=== PATIENT | female | born 1975 | race Caucasian/White ===

== ENCOUNTER 2023-03-09 15:07 | Outpatient (CLI) | payer OTHER, SELFPAY | END 2023-03-09 15:08 | disposition home or self-care (01) | LOC: NFLDREF 03-10 14:25 | PROVIDERS: Visit Provider Dermatology | DX: Z79.899 Other long term (current) drug therapy (principal) | CPT/HCPCS: 80053 ==

== ENCOUNTER 2023-06-16 10:26 | Emergency (ER) | payer OTHER, SELFPAY ==
[2023-06-16] VITALS (19 sets, daily range): BP systolic 123–141; BP diastolic 81–102; PULSE 70–88; RESP 20; TEMP 36.2; O2SAT 94–98; BMI 33.0
--- NOTE | 2023-06-16 11:08 | CRLHL7_ITS ---
For Patients: As a result of the Century Cures Act, medical imaging exams and procedure reports are released immediately into your electronic medical record. You may view this report before your referring provider. If you have questions, please contact your health care provider. DATE: 06/16/2023 CLINICAL HISTORY: Patient with focal neurological deficits. TECHNIQUE: Standard helical CT image acquisition through the intracranial circulation following intravenous administration of contrast material with bolus tracking. 2D and 3D MIP images for post-processing were performed and interpreted on an independent workstation and 3D images were permanently archived. COMPARISON: CT same day. FINDINGS: There is no cerebral aneurysm or large vessel occlusion. The right internal carotid artery is normal. The right middle cerebral artery and its branches are normal. The right anterior cerebral artery and its branches are normal. The left internal carotid artery is normal. The left middle cerebral artery and its branches are normal. The left anterior cerebral artery and its branches are normal. The anterior communicating artery is well visualized and appears normal. The right vertebral artery and PICA are normal. The left vertebral artery and PICA are normal. The left vertebral artery is dominant. The basilar artery is patent and appears normal. The right posterior cerebral artery is normal. The left posterior cerebral artery is normal. The visualized venous structures are patent. IMPRESSION: Normal CT angiogram of the head without intracranial aneurysm or other neurovascular abnormality. Please note that all CT scans at this facility use dose modulation, iterative reconstruction, and/or weight-based dosing when appropriate to reduce radiation dose to as low as reasonably achievable. Dictated by Corie Solano MD @ 06/16/2023 4:11:23 PM (Electronically Signed)
--- NOTE | 2023-06-16 11:08 | CRLHL7_ITS ---
For Patients: As a result of the Century Cures Act, medical imaging exams and procedure reports are released immediately into your electronic medical record. You may view this report before your referring provider. If you have questions, please contact your health care provider. DATE: 06/16/2023 CLINICAL HISTORY: Patient with focal neurological deficits. TECHNIQUE: Standard helical CT image acquisition of the neck up to the skull base after bolus intravenous contrast enhancement. 2D and 3D MIP images for post-processing were performed and interpreted on an independent workstation and 3D images were permanently archived. COMPARISON: CT same day. FINDINGS: The origins of the great vessels from the aortic arch are patent. The origin of the right vertebral artery is patent. The origin of the left vertebral artery is patent. The common carotid arteries are patent. There is no stenosis at the origin of the right internal carotid artery. There is no stenosis at the origin of the left internal carotid artery. The rest of the cervical segments of the internal carotid arteries are patent up to the skull base. The left vertebral artery is dominant. The cervical segments of the vertebral arteries are patent up to the skull base. The visualized lung apices are unremarkable. The thyroid gland is unremarkable. The soft tissues of the neck are unremarkable. There are degenerative changes in the cervical spine. IMPRESSION: Normal CT angiogram of the neck. Please note that all CT scans at this facility use dose modulation, iterative reconstruction, and/or weight-based dosing when appropriate to reduce radiation dose to as low as reasonably achievable. Dictated by Corie Solano MD @ 06/16/2023 3:59:05 PM (Electronically Signed)
--- NOTE | 2023-06-16 11:08 | CRLHL7_ITS ---
For Patients: As a result of the Century Cures Act, medical imaging exams and procedure reports are released immediately into your electronic medical record. You may view this report before your referring provider. If you have questions, please contact your health care provider. INDICATION: tingling, numbness, visual loss, SINCE LAST NIGHT TECHNIQUE: CT head without contrast. COMPARISON: None. FINDINGS: CSF spaces: Within normal limits for age. Brain parenchyma and extra-axial spaces: The bruce-white differentiation is normal. No sign of intracranial hemorrhage, or midline shift. No extra-axial fluid collection. Skull base and calvarium: The visualized paranasal sinuses and mastoid air cells demonstrate no acute or significant findings. The visualized orbits are grossly unremarkable. No skull fractures. IMPRESSION: Unremarkable noncontrast head CT. Recommend further evaluation with MRI, if clinically indicated. Please note that all CT scans at this facility use dose modulation, iterative reconstruction, and/or weight-based dosing when appropriate to reduce radiation dose to as low as reasonably achievable. Dictated by Shankar Rodriguez MD @ 06/16/2023 12:05:59 PM (Electronically Signed)
[2023-06-16 11:33] LABS: Basophils Absolute Auto 0.02 K/uL (0.00-0.30); Basophils Percent Auto 0.3 % (0.0-3.0); Eosinophils Absolute Auto 0.09 K/uL (0.00-0.50); Eosinophils Percent Auto 1.3 % (0.0-7.0); Hematocrit 44.4 % (33.0-51.0); Hemoglobin* 14.6 gm/dL (12.0-16.0); Immature Granulocytes Abs Auto 0.01 K/uL (0.00-0.30); Immature Granulocytes Pct Auto 0.1 %; Lymphocytes Absolute Auto 1.86 K/uL (0.90-2.90); Lymphocytes Percent Auto 26.5 % (20-44); Mean Corpuscular HGB Conc 33 gm/dL (32-36); Mean Corpuscular Hemoglobin 30 pg (26-34); Mean Corpuscular Volume 90 fL (80-100); Monocytes Percent Auto 6.7 % (0.0-11.0); Neutrophils Absolute Auto 4.56 K/uL (1.7-7.0); Neutrophils Percent Auto 65.1 % (42.0-72.0); Platelet Count* 369 K/uL (140-440); RDW Coefficient of Variation % 13.1 % (11.5-15.5); Red Blood Count 4.91 m/uL (4.00-5.20); White Blood Count* 7.01 K/uL (4.50-11.00)
[2023-06-16 11:44] LABS: Slide Review Reflex No
[2023-06-16 11:46] LABS: Amphetamine Screen Urine Negative (Negative); Barbiturate Screen Urine Negative (Negative); Benzodiazepines Screen Urine Negative (Negative); Cannabinoid Screen Urine POSITIVE (Negative); Cocaine Screen Urine Negative (Negative); Methadone Screen Urine Negative (Negative); Methamphetamines Screen Urine Negative (Negative); Opiate Screen Urine Negative (Negative); Oxycodone Screen Urine Negative (Negative); Phencyclidine Screen Urine Negative (Negative); Tricyclic Antidepressant Urine Negative (Negative)
[2023-06-16] MEDS: 0.9 % SODIUM CHLORIDE 1000 ml 1,000 ML IV (11:51)
--- NOTE | 2023-06-16 11:54 | ED.NURSE ---
patient is improving stated the tingling in the toes is gone but continues with the hands. stated the hand just do not feel right.
[2023-06-16 11:56] LABS: INR 0.95 (0.91-1.10); Prothrombin Time 13.2 Seconds
[2023-06-16 11:57] LABS: Albumin* 4.7 g/dL (3.3-5.0); Chloride* 106 mmol/L (96-114); Partial Thromboplastin Time* 31 Seconds (23-33); Potassium* 4.2 mmol/L (3.6-5.1); Sodium* 139 mmol/L (135-149)
[2023-06-16 11:59] LABS: Anion Gap 8 mEq/L (7-15); Bilirubin Total* 0.7 mg/dL (0.1-1.5); Carbon Dioxide* 25 mmol/L (20-32); Creatinine* 0.7 mg/dL (0.5-1.5); Est. Creatinine Clearance* 108.59; Estimated Glomerular Filt Rate 108 ml/min; Total Protein* 8.1 g/dL (6.0-8.3)
[2023-06-16 12:00] LABS: Alanine Aminotransferase* 23 U/L (4-35); Alkaline Phosphatase* 78 U/L (40-150); Aspartate Amino Transferase* 27 U/L (12-35); Blood Urea Nitrogen* 13 mg/dL (5-24); Calcium* 9.4 mg/dL (8.4-10.6); Glucose* 95 mg/dL (60-115)
[2023-06-16 12:09] LABS: PCR FLU A Negative PCR FLU A (Negative); PCR FLU B Negative PCR FLU B (Negative); PCR RSV Negative PCR RSV (Negative)
[2023-06-16 12:14] LABS: SARS PCR* Negative SARS-CoV-2 (Negative)
--- NOTE | 2023-06-16 13:18 | ED_ITS ---
HPI - Neuro Symptoms/Deficit General Chief Complaint: Neuro Symptoms/Altered Deficit Stated Complaint: Tingling in limbs Time Seen by Provider: 06/16/23 10:45 History of Present Illness HPI Narrative: Patient is a very nice 47-year-old female presents with her significant other ambulatory for evaluation of numbness and tingling she has an all of her extremities, she localizes this to her hands and her feet bilaterally. The tingling sensation then loss of sensation, she has noted no weakness associated with this, this come on the last 3-4 hours. Not associated with any headache, loss of vision although yesterday she had acute loss of right-sided visual field. This lasted for approximately 30-40 minutes, she tells me she has had this before, her doctors told her in the past this may be a TIA or may be an atypical migraine headache, the only real change she has noted recently is she started on doxycycline for assist infection over the back of her neck after she had this removed by the clinical radiologist. She is also on Casodex, on been on this for approximately 3 months. Indication for this was acne. Denies any other visual changes, speech issues, thinking, balance issues, any weakness in her hands or feet. She has denies no fevers chills or sweats, or any other issue she is not on any medications for TIAs. No previous history of any this and no history in the family of any heart or previous strokes at a young age. No family history of migraine headaches. Related Data Home Medications Medication Instructions Recorded Confirmed venlafaxine 75 mg capsule,extended 75 mg PO DAILY 06/16/23 06/16/23 release 24 hr Previous Rx's Medication Instructions Recorded ketoconazole 2 % topical cream 1 applic topical QDAY #60 grams 12/29/22 bicalutamide 50 mg tablet (Casodex) 50 mg PO QDAY #24 tabs 06/01/23 doxycycline hyclate 100 mg capsule 100 mg PO BID #28 caps 06/14/23 cephalexin 500 mg capsule 500 mg PO TID #20 caps 06/16/23 Allergies Allergy/AdvReac Type Severity Reaction Status Date / Time No Known Drug Allergies Allergy Verified 06/16/23 10:38 Review of Systems Status of ROS: Reports: 10 or more systems reviewed and unremarkable except as noted in History and below [facility] Medical History Infection ?B99.9 - Unspecified infectious disease (ICD-10) Acne ?L70.9 - Acne, unspecified (ICD-10) Social History Smoking Status: Never smoker How often do you have a drink containing alcohol: never AUDIT-C Alcohol total score: 0 Non-prescribed substance use: denies use Exam Narrative: Exam Narrative: On examination in room 6 she is in no apparent distress her pupils are equal round reactive to light there is no scleral icterus or redness there is no nystagmus, her TMs are normal oropharynx is normal cranial nerves 3-12 are entirely normal. Her visual mckenzie are normal on testing, her speech is normal. She is not able to whistle but tells me she can never whistle anyway. Carotid upstrokes are equal bilaterally with absence of bruits, JVP is flat, there is no lymphadenopathy anterior posterior chains. Chest is clear bilaterally no wheezing crackles noted over the upper part of her back approximately just lateral to see 7, T1, there is an area of redness, within exuding area of slight pus and debris consistent with the previous removal. Heart sounds no clicks murmurs or gallops her abdomen is soft, there is no guarding no organomegaly she moves all extremities independently well has good coordination, no ataxia, heel- breen tile is normal, Romberg is normal, gait is normal, stroke /NIH Screen is 0. Const: Vital Signs, click to edit/add: Vital Signs - 24 hr 06/16/23 10:32 06/16/23 11:08 06/16/23 11:58 Temperature 97.2 F L Pulse Rate 70 Pulse Rate [Right Pulse Oximeter] 88 Respiratory Rate 20 Blood Pressure Blood Pressure [Ri ght Upper Arm] 135/89 Pulse Oximetry 96 97 98 Oxygen Delivery Me thod Room Air 06/16/23 12:00 06/16/23 12:02 06/16/23 12:15 Temperature Pulse Rate 71 75 71 Pulse Rate [Right Pulse Oximeter] Respiratory Rate Blood Pressure 132/85 Blood Pressure [Ri ght Upper Arm] Pulse Oximetry 96 98 97 Oxygen Delivery Me thod 06/16/23 12:17 06/16/23 12:30 06/16/23 12:32 Temperature Pulse Rate 76 78 73 Pulse Rate [Right Pulse Oximeter] Respiratory Rate Blood Pressure 141/93 H 138/102 H Blood Pressure [Ri ght Upper Arm] Pulse Oximetry 98 97 98 Oxygen Delivery Me thod 06/16/23 12:45 06/16/23 12:47 06/16/23 13:00 Temperature Pulse Rate 77 72 74 Pulse Rate [Right Pulse Oximeter] Respiratory Rate Blood Pressure 131/82 Blood Pressure [Ri ght Upper Arm] Pulse Oximetry 96 97 97 Oxygen Delivery Me thod 06/16/23 13:02 06/16/23 13:15 06/16/23 13:17 Temperature Pulse Rate 78 76 77 Pulse Rate [Right Pulse Oximeter] Respiratory Rate Blood Pressure 123/81 125/100 H Blood Pressure [Ri ght Upper Arm] Pulse Oximetry 96 97 96 Oxygen Delivery Me thod 06/16/23 13:30 06/16/23 13:32 06/16/23 13:45 Temperature Pulse Rate 72 72 70 Pulse Rate [Right Pulse Oximeter] Respiratory Rate Blood Pressure 130/89 Blood Pressure [Ri ght Upper Arm] Pulse Oximetry 94 95 95 Oxygen Delivery Me thod 06/16/23 13:47 Temperature Pulse Rate 73 Pulse Rate [Right Pulse Oximeter] Respiratory Rate Blood Pressure 129/97 H Blood Pressure [Ri ght Upper Arm] Pulse Oximetry 96 Oxygen Delivery Me thod Documenting provider has reviewed patient's vital signs: yes Course Course ED Course: Discussed with the patient, they MRI of the brain did not show any acute issues. I suspect that it least the paresthesias he is having is from possibly medication, we will stop the doxycycline, and have her take aspirin 81 mg I highly suggest her follow-up with the neurologist. Return here if signs symptoms of worsening. Reevaluation(s) Time of Reevaluation #1: 14:08 Reevaluation #1: Patient continues to be so pain-free, and relatively negative on the stroke screen, her numbness and tingling has markedly improved. I did offer her an MRI of her head, to further delineate this history of previous TIAs. She agreed. Vital Signs Vital signs: Initial Vital Signs Temperature 97.2 F L 06/16/23 10:32 Temperature Source Temporal Artery Scan 06/16/23 10:32 Pulse Rate 88 06/16/23 10:32 Respiratory Rate 20 06/16/23 10:32 Blood Pressure 135/89 06/16/23 10:32 Blood Pressure Mean 104 06/16/23 10:32 Blood Pressure Position Sitting 06/16/23 10:32 Pulse Oximetry 96 06/16/23 10:32 Oxygen Delivery Method Room Air 06/16/23 10:32 Vital Signs Temperature 97.2 F L 06/16/23 10:32 Pulse Rate 88 06/16/23 10:32 Respiratory Rate 20 06/16/23 10:32 Blood Pressure 135/89 06/16/23 10:32 Pulse Oximetry 96 06/16/23 10:32 Oxygen Delivery Method Room Air 06/16/23 10:32 Temperature 97.2 F L 06/16/23 10:32 Pulse Rate 73 06/16/23 13:47 Respiratory Rate 20 06/16/23 10:32 Blood Pressure 129/97 H 06/16/23 13:47 Pulse Oximetry 96 06/16/23 13:47 Oxygen Delivery Method Room Air 06/16/23 10:32 MDM - Neuro Symptoms/Deficit MDM Narrative Medical decision making narrative: Life-threatening differential diagnosis considered include stroke, coronary artery disease, pneumonia, and heart failure. Other differential diagnosis include but are not limited to electrolyte imbalances, anemia, medication reactions, and urinary tract infection Life-threatening differential diagnosis include subarachnoid hemorrhage, meningitis, encephalitis, carbon monoxide poisoning, and intracerebral hemorrhage. Other differential diagnosis include but not limited to migraine, cluster headache, tension headache, HOSPICE [facility] THERAP[facility] vasculitis, mass lesion, temporal arteritis, click acute closed angle glaucoma, septal and trigeminal neuralgia, sinusitis, closed head injury, and stroke Medical Records Attestation: I reviewed the patient's medical records. Lab Data Attestation: I reviewed the patient's lab results. Labs: Lab Results 06/16/23 06/16/23 Range/Units 11:15 11:20 WBC 7.01 (4.50-11.00) K/uL RBC 4.91 (4.00-5.20) m/uL Hgb 14.6 (12.0-16.0) gm/dL Hct 44.4 (33.0-51.0) % MCV 90 (80-100) fL MCH 30 (26-34) pg MCHC 33 (32-36) gm/dL RDW Coeff of King 13.1 (11.5-15.5) % Plt Count 369 (140-440) K/uL Neut % (Auto) 65.1 (42.0-72.0) % Lymph % (Auto) 26.5 (20-44) % Archuleta % (Auto) 6.7 (0.0-11.0) % Eos % (Auto) 1.3 (0.0-7.0) % Baso % (Auto) 0.3 (0.0-3.0) % Neut # (Auto) 4.56 (1.7-7.0) K/uL Lymph # (Auto) 1.86 (0.90-2.90) K/uL Archuleta # (Auto) 0.50 (0.00-0.90) K/UL Eos # (Auto) 0.09 (0.00-0.50) K/uL Baso # (Auto) 0.02 (0.00-0.30) K/uL Abs Immat Gran (auto) 0.01 (0.00-0.30) K/uL Imm/Tot Granulo (auto) 0.1 % INR 0.95 (0.91-1.10) APTT 31 (23-33) Seconds Sodium 139 (135-149) mmol/L Potassium 4.2 (3.6-5.1) mmol/L Chloride 106 (96-114) mmol/L Carbon Dioxide 25 (20-32) mmol/L Anion Gap 8 (7-15) mEq/L BUN 13 (5-24) mg/dL Creatinine 0.7 (0.5-1.5) mg/dL Estimated Creat Clear 108.59 Estimated GFR 108 ml/min Glucose 95 (60-115) mg/dL Calcium 9.4 (8.4-10.6) mg/dL Total Bilirubin 0.7 (0.1-1.5) mg/dL Direct Bilirubin 0.0 (0.0-0.5) mg/dL AST 27 (12-35) U/L ALT 23 (4-35) U/L Alkaline Phosphatase 78 (40-150) U/L Total Protein 8.1 (6.0-8.3) g/dL Albumin 4.7 (3.3-5.0) g/dL TSH 1.140 (0.270-4.20) uIU/mL Urine Opiates Screen Negative (Negative) Ur Oxycodone Screen Negative (Negative) Urine Methadone Screen Negative (Negative) Ur Propoxyphene Screen Negative (Negative) Ur Barbiturates Screen Negative (Negative) U Tricyclic Antidepress Negative (Negative) Ur Phencyclidine Scrn Negative (Negative) Ur Amphetamines Screen Negative (Negative) U Methamphetamines Scrn Negative (Negative) U Benzodiazepines Scrn Negative (Negative) Urine Cocaine Screen Negative (Negative) U Marijuana (THC) Screen POSITIVE A (Negative) Ur Drug Screen Comment See Note SARS-CoV-2 (PCR) Negative SARS-CoV-2 (Negative) Influenza Type A (PCR) Negative PCR FLU A (Negative) Influenza Type B (PCR) Negative PCR FLU B (Negative) RSV (PCR) Negative PCR RSV (Negative) Imaging Data CT scan - head: Attestation: I have reviewed the pertinent imaging results. My impression: Patient: [facility] Facility:?[facility] Patient ID:?[id number] Site Patient ID:?[id number]. Site :?[id number] Study:?CT Head W/O NON ACUTE-06/16/2023 11:45:51 AM Ordering Physician:Maria Fernanda Rahman Final Report: INDICATION: tingling, numbness, visual loss, SINCE LAST NIGHT TECHNIQUE: CT head without contrast. COMPARISON: None. FINDINGS: CSF spaces: Within normal limits for age. Brain parenchyma and extra-axial spaces: The bruce-white differentiation is normal. No sign of intracranial hemorrhage, or midline shift. No extra-axial fluid collection. Skull base and calvarium: The visualized paranasal sinuses and mastoid air cells demonstrate no acute or significant findings. The visualized orbits are grossly unremarkable. No skull fractures. IMPRESSION: Unremarkable noncontrast head CT. Recommend further evaluation with MRI, if clinically indicated. Please note that all CT scans at this facility use dose modulation, iterative reconstruction, and/or weight-based dosing when appropriate to reduce radiation dose to as low as reasonably achievable. Dictated by Shankar Rodriguez MD @ 06/16/2023 12:05:59 PM (Electronic Signature) Patient: [facility] Facility:?[facility] Patient ID:?[id number] Site Patient ID:?[id number]. Site :?[id number] Study:?MRI Head W/O-06/16/2023 2:16:26 PM Ordering Physician:Maria Fernanda Rahman Final Report: INDICATION: Visual field defects. TECHNIQUE: Brain MRI without contrast. The following sequences were obtained: Sagittal T1 weighted sequence. DWI and ADC mapping sequences. Axial FLAIR and CECE T2 weighted sequences. COMPARISON: Head CT from 06/16/2023. FINDINGS: No evidence of acute ischemia. No evidence of acute or chronic intracranial blo od products. Three small FLAIR hyperintense foci scattered within the supratentorial white matter, typical for chronic microvascular ischemic change. No mass effect or herniation. No hydrocephalus or extra-axial collections. The pituitary gland, parasellar structures and optic chiasm are normal. Posterior fossa is normal. All the major intracranial vascular structures demonstrate normal flow-related signal. The orbital contents are normal. No calvarial or skull base marrow replacing process. No obstructive sinus disease. No extracranial soft tissue findings. IMPRESSION: 1. No acute ischemia or other acute intracranial pathology. 2. Mild chronic microvascular ischemic changes. Dictated by Juan Blue MD @ 06/16/2023 2:30:01 PM (Electronic Signature) ECG Data Attestation: I personally reviewed and interpreted this ECG as follows: ECG interpretation date: 06/16/23 Interpretation: EKG shows normal sinus rhythm no acute ST wave changes, QT normal Discharge Plan Discharge Clinical Impression: Vision changes, Paresthesia Patient Disposition: Home w/ Parent or Adult Condition: Stable Instructions: Paresthesia (ED), Blurred Vision (ED) Additional Instructions: the MRI did not show any acute stroke, mass, or any real evidence of any significant issue Acutely. there was some evidence of microvascular disease which is often seen in migraine headaches, but also could be tied to other issues .I would suggest follow-up with Neurology, taking aspirin 81 mg a day would not be a bad idea at this point. I would also suggest stopping the doxycycline, we will try little bit of Keflex instead. Follow back up with dermatology. Prescriptions: New cephalexin 500 mg capsule 500 mg PO TID Qty: 20 0RF No Action bicalutamide [Casodex] 50 mg tablet 50 mg PO QDAY Qty: 24 1RF Rx Instructions: Take one pill twice a week. ketoconazole 2 % cream 1 applic topical QDAY Qty: 60 1RF Rx Instructions: Apply every morning. venlafaxine 75 mg capsule,extended release 24hr 75 mg PO DAILY doxycycline hyclate 100 mg capsule 100 mg PO BID Qty: 28 0RF Follow Up/Referrals: Vonda Garcia MD [Primary Care Provider] - Stand Alone Forms: [employer] Info Instructions
--- NOTE | 2023-06-16 13:31 | CRLHL7_ITS ---
For Patients: As a result of the Century Cures Act, medical imaging exams and procedure reports are released immediately into your electronic medical record. You may view this report before your referring provider. If you have questions, please contact your health care provider. INDICATION: Visual field defects. TECHNIQUE: Brain MRI without contrast. The following sequences were obtained: Sagittal T1 weighted sequence. DWI and ADC mapping sequences. Axial FLAIR and CECE T2 weighted sequences. COMPARISON: Head CT from 06/16/2023. FINDINGS: No evidence of acute ischemia. No evidence of acute or chronic intracranial blood products. Three small FLAIR hyperintense foci scattered within the supratentorial white matter, typical for chronic microvascular ischemic change. No mass effect or herniation. No hydrocephalus or extra-axial collections. The pituitary gland, parasellar structures and optic chiasm are normal. Posterior fossa is normal. All the major intracranial vascular structures demonstrate normal flow-related signal. The orbital contents are normal. No calvarial or skull base marrow replacing process. No obstructive sinus disease. No extracranial soft tissue findings. IMPRESSION: 1. No acute ischemia or other acute intracranial pathology. 2. Mild chronic microvascular ischemic changes. Dictated by Juan Blue MD @ 06/16/2023 2:30:01 PM (Electronically Signed)
[2023-06-16] MEDS: ASPIRIN 81 MG TAB.CHEW PO (14:55)
== END 2023-06-16 15:02 | disposition home or self-care (01) ==
PROVIDERS: Emergency Provider Family Medicine; PCP Family Medicine
DX: R20.2 Paresthesia of skin (principal); H53.9 Unspecified visual disturbance
CPT/HCPCS: 36415; 70450; 70496; 70498; 70551; 80048; 80076; 80306; 84443; 85025; 85610; 85730; 87631; 93005; 94761; 99284; 99285; A9270; J7030; Q9967

== ENCOUNTER 2023-08-15 18:53 | Outpatient (CLI) | payer OTHER, SELFPAY | END 2023-08-15 18:54 | disposition home or self-care (01) | LOC: AMB 08-17 12:01 | PROVIDERS: PCP Family Medicine; Visit Provider Family Medicine | DX: R55 Syncope and collapse (principal) | CPT/HCPCS: A0425; A0427 ==

== ENCOUNTER 2023-08-15 20:10 | Emergency (ER) | payer OTHER, SELFPAY ==
[2023-08-15 20:21] VITALS: BP 132/92; PULSE 92; RESP 18; TEMP 36.8; O2SAT 95
--- NOTE | 2023-08-15 20:30 | ED_ITS ---
HPI - General Adult General Time Seen by Provider: 20:31 Date Seen: 08/15/23 Chief complaint: Alcohol/Intoxication Stated complaint: Weakness Time Seen by Provider: 08/15/23 20:13 Source: patient Mode of arrival: EMS Limitations: no limitations History of Present Illness HPI narrative: 47-year-old female who presents today for lightheadedness. Patient was drinking vodka tonight and smoking marijuana, became lightheaded. Neighbors came over and said her blood pressure was high, EMS was called. Patient was given normal saline 400 mL in route to the emergency department and feels fine now. She had no chest pain, palpitations, headache, nausea, vomiting, abdominal pain, diarrhea. She has been her usual state of health up to this point. She says she drinks wine regularly but had vodka tonight which is not typical for her. Denies suicide or homicidal ideation. Related Data Home Medications Medication Instructions Recorded Confirmed venlafaxine 75 mg capsule,extended 75 mg PO DAILY 06/16/23 08/15/23 release 24 hr Previous Rx's Medication Instructions Recorded ketoconazole 2 % topical cream 1 applic topical QDAY #60 grams 12/29/22 bicalutamide 50 mg tablet (Casodex) 50 mg PO QDAY #24 tabs 06/01/23 doxycycline hyclate 100 mg capsule 100 mg PO BID #28 caps 06/14/23 cephalexin 500 mg capsule 500 mg PO TID #20 caps 06/16/23 Allergies Allergy/AdvReac Type Severity Reaction Status Date / Time No Known Drug Allergies Allergy Verified 08/15/23 20:21 [facility] Medical History Infection ?B99.9 - Unspecified infectious disease (ICD-10) Acne ?L70.9 - Acne, unspecified (ICD-10) Social History Smoking Status: Never smoker How often do you have a drink containing alcohol: never AUDIT-C Alcohol total score: 0 Non-prescribed substance use: denies use Exam Narrative: Exam Narrative: General: Well-developed and well-nourished, no acute distress Head: Atraumatic and normocephalic Eyes: Pupils are equal reactive, extraocular motions intact, conjunctiva clear ENT: External nose and ears are normal, posterior pharynx without erythema or exudate Neck: No midline cervical tenderness, full spontaneous range of motion the neck, trachea midline, no adenopathy Heart: Regular rate and rhythm no murmurs or thrills Lungs: Clear to auscultation bilaterally without wheezes or crackles Abdomen: Soft, nontender, nondistended with active bowel sounds Musculoskeletal: No tenderness, deformity, or edema Neurologic: Awake, alert, and oriented x3, no gross focal neurologic deficits, cranial nerves intact as tested Psych: Mood and affect are appropriate Skin: No rashes Const: Vital Signs, click to edit/add: Vital Signs - 24 hr 08/15/23 20:21 Temperature 98.2 F Pulse Rate [Pulse Oximeter] 92 Respiratory Rate 18 Blood Pressure [Ri t Upper Arm] 132/92 H Pulse Oximetry 95 Oxygen Delivery Me thod Room Air Course Course ED Course: Patient seen and examined, prior records reviewed. Patient presents today with lightheadedness after drinking alcohol and smoking marijuana. She feels fine now. No chest pain, palpitations, or shortness of breath with this. Denies fall or head injury. Denies recent illness, fever, nausea, vomiting, urinary symptoms. Patient will be given a fluid bolus and discharged. Vital Signs Vital signs: Initial Vital Signs Temperature 98.2 F 08/15/23 20:21 Temperature Source Temporal Artery Scan 08/15/23 20:21 Pulse Rate 92 08/15/23 20:21 Respiratory Rate 18 08/15/23 20:21 Blood Pressure 132/92 H 08/15/23 20:21 Blood Pressure Mean 105 08/15/23 20:21 Blood Pressure Position Sitting 08/15/23 20:21 Pulse Oximetry 95 08/15/23 20:21 Oxygen Delivery Method Room Air 08/15/23 20:21 Vital Signs Temperature 98.2 F 08/15/23 20:21 Pulse Rate 92 08/15/23 20:21 Respiratory Rate 18 08/15/23 20:21 Blood Pressure 132/92 H 08/15/23 20:21 Pulse Oximetry 95 08/15/23 20:21 Oxygen Delivery Method Room Air 08/15/23 20:21 Temperature 98.2 F 08/15/23 20:21 Pulse Rate 92 08/15/23 20:21 Respiratory Rate 18 12/19/23 20:21 Blood Pressure 132/92 H 08/15/23 20:21 Pulse Oximetry 95 08/15/23 20:21 Oxygen Delivery Method Room Air 08/15/23 20:21 Medications Administered Medications: Discontinued Medications Generic Name Dose Route Start Last Admin Trade Name Peng PRN Reason Stop Dose Admin Sodium Chloride 1,000 mls @ 6,000 mls/hr 08/15/23 20:49 08/15/23 21:35 0.9 % Sodium Chloride 1000 Ml IV 08/15/23 20:58 Infused .Q10M [facility] Ketorolac Tromethamine 15 mg 08/15/23 21:14 08/15/23 21:24 Ketorolac 15 Mg/Ml Inj IVP 08/15/23 21:15 15 mg ONCE ONE Administration Discharge Plan Discharge Clinical Impression: Alcoholic intoxication, Near syncope Patient Disposition: Home w/ Parent or Adult Condition: Stable Instructions: Near Syncope (ED) Additional Instructions: Plenty of rest and fluids the next 24 hours. Avoid alcohol for the next couple of days. No driving for 12 hours Activity Level: Activity as Tolerated Discharge Diet: Regular Prescriptions: No Action bicalutamide [Casodex] 50 mg tablet 50 mg PO QDAY Qty: 24 1RF Rx Instructions: Take one pill twice a week. ketoconazole 2 % cream 1 applic topical QDAY Qty: 60 1RF Rx Instructions: Apply every morning. venlafaxine 75 mg capsule,extended release 24hr 75 mg PO DAILY cephalexin 500 mg capsule 500 mg PO TID Qty: 20 0RF doxycycline hyclate 100 mg capsule 100 mg PO BID Qty: 28 0RF Follow Up/Referrals: Vonda Garcia MD [Primary Care Provider] - Stand Alone [facility]: [facility] Info Inst[facility]
[2023-08-15] MEDS: 0.9 % SODIUM CHLORIDE 1000 ml 1,000 ML 6000 ML IV (20:50)
[2023-08-15] MEDS: KETOROLAC 15 MG/ML inj IVP (21:24)
== END 2023-08-15 21:36 | disposition home or self-care (01) ==
PROVIDERS: Emergency Provider Family Medicine; PCP Family Medicine
DX: R55 Syncope and collapse (principal); F10.129 Alcohol abuse with intoxication, unspecified
CPT/HCPCS: 95992; 96374; 99283; J1885; J7030

== ENCOUNTER 2023-09-10 16:04 | Emergency (ER) | payer OTHER, SELFPAY ==
[2023-09-10 16:17] VITALS: BP 118/80; PULSE 94; RESP 18; TEMP 36.3; O2SAT 98; BMI 32.3
--- NOTE | 2023-09-10 16:49 | ED.GENADULT ---
HPI - General Adult General Chief complaint: Ear/Nose/Throat Problem Stated complaint: numb fingers,weak, vomiting, shortness of breath Time Seen by Provider: 09/10/23 16:36 History of Present Illness HPI narrative: This 47-year-old female was seen in urgent care 3 days ago and diagnosed with the otitis media in her right ear. She received a prescription for Augmentin. Since then she is reporting nausea and tingly feeling in her fingers bilaterally. She does not report any rash. She thinks that the ear pain is improved. she does not report any fevers. She states that she has noted a little bit of fluid draining from her right ear. Related Data Home Medications Medication Instructions Recorded Confirmed venlafaxine 75 mg capsule,extended 75 mg PO DAILY 06/16/23 09/10/23 release 24 hr Previous Rx's Medication Instructions Recorded bicalutamide 50 mg tablet (Casodex) 50 mg PO QDAY #24 tabs 06/01/23 amoxicillin 875 mg tablet 875 mg PO BID 5 days #10 tabs 09/08/23 azithromycin 250 mg tablet 250 mg PO DAILY #6 tabs 09/10/23 (Zithromax Z-Quintin) ondansetron HCl 4 mg tablet 4 mg PO Q6H #10 tabs 09/10/23 Allergies Allergy/AdvReac Type Severity Reaction Status Date / Time No Known Drug Allergies Allergy Verified 09/10/23 16:16 Review of Systems Status of ROS: Reports: 10 or more systems reviewed and unremarkable except as noted in History and below Narrative: Constitutional: No fevers, no weight gain or loss. Eyes: No discharge. No vision changes. HENT: No congestion, no sore throat . Right ear pain with small amount of drainage. Cardiovascular: No chest pain, no palpitations. Respiratory: No shortness of breath, no wheezes, no cough. Gastrointestinal: No abdominal pain, no vomiting, no diarrhea. Genitourinary: No dysuria, no hematuria. Musculoskeletal: Normal range of motion. Skin: No rashes, no pruritis. Neurological: No dizziness, weakness, sensory change, speech change. Endo/Heme/Allergies: No bruising or bleeding. No polydipsia. Pysch: no suicidality, no anxiety, no insomnia. All other systems reviewed and are negative. [facility] Medical History Infection ?B99.9 - Unspecified infectious disease (ICD-10) Acne ?L70.9 - Acne, unspecified (ICD-10) Social History Smoking Status: Never smoker How often do you have a drink containing alcohol: never AUDIT-C Alcohol total score: 0 Non-prescribed substance use: denies use Exam Narrative: Exam Narrative: Constitutional: Well-developed, well-nourished, no acute distress. HEENT: Normocephalic, atraumatic. Left tympanic membrane appears normal. Right tympanic membrane has some mild erythema and a very small amount of clear fluid in the canal. No purulence or sign of bleeding. Neck: Normal range of motion. Nontender. Supple. Heart: Regular. No murmurs. Normal rate. Intact distal pulses. Lungs: Clear to auscultation. No chest discomfort. No wheezes, rhonchi, or rales. Abdomen: Normal bowel sounds. Nontender. No rebound tenderness. Genitalia: Deferred. Back: No midline tenderness. Normal range of motion. Extremities: Normal range of motion. No injury. Skin: Intact. No rash. Warm. No erythema or pallor. Neurologic: No altered sensation. No weakness. Alert and oriented. Psychiatric: No suicidality. No anxiety or depression. No insomnia. Nursing notes and vitals signs are reviewed. Const: Vital Signs, click to edit/add: Vital Signs - 24 hr 09/10/23 16:17 Temperature 97.3 F L Pulse Rate [Pulse Oximeter] 94 Respiratory Rate 18 Blood Pressure [Ri ght Upper Arm] 118/80 Pulse Oximetry 98 Oxygen Delivery Me thod Room Air Course Vital Signs Vital signs: Initial Vital Signs Temperature 97.3 F L 09/10/23 16:17 Temperature Source Temporal Artery Scan 09/10/23 16:17 Pulse Rate 94 09/10/23 16:17 Pulse Rhythm Regular 09/10/23 16:17 Pulse Strength 3+ Normal 09/10/23 16:17 Respiratory Rate 18 09/10/23 16:17 Blood Pressure 118/80 09/10/23 16:17 Blood Pressure Mean 92 09/10/23 16:17 Blood Pressure Position Sitting 09/10/23 16:17 Pulse Oximetry 98 09/10/23 16:17 Oxygen Delivery Method Room Air 09/10/23 16:17 Vital Signs Temperature 97.3 F L 09/10/23 16:17 Pulse Rate 94 09/10/23 16:17 Respiratory Rate 18 09/10/23 16:17 Blood Pressure 118/80 09/10/23 16:17 Pulse Oximetry 98 09/10/23 16:17 Oxygen Delivery Method Room Air 09/10/23 16:17 Temperature 97.3 F L 09/10/23 16:17 Pulse Rate 94 09/10/23 16:17 Respiratory Rate 18 09/10/23 16:17 Blood Pressure 118/80 09/10/23 16:17 Pulse Oximetry 98 09/10/23 16:17 Oxygen Delivery Method Room Air 09/10/23 16:17 Medical Decision Making MDM Narrative Medical decision making narrative: This 47-year-old female has been taking Augmentin for the past few days and seems to have adverse effects with regard to this medicine. She is currently having some nausea symptoms and did receive an oral dose of Zofran 4 mg. As for her ear infection it seems to be improved both in her symptoms and on exam however I did not see her rigt ear 3 days ago of course. I advised her to discontinue the Augmentin and prescribed a Z-Quintin instead. She also received a prescription for Zofran. Discharge Plan Discharge Clinical Impression: Otitis media Patient Disposition: Home, Self-Care Condition: Stable Additional Instructions: Discontinue Augmentin and take Zithromax as directed. Use Zofran also as needed and directed for nausea symptoms. Follow up with MD return if worsening. Prescriptions: New azithromycin [Zithromax Z-Quintin] 250 mg tablet 250 mg PO DAILY Qty: 6 0RF ondansetron HCl 4 mg tablet 4 mg PO Q6H Qty: 10 0RF No Action bicalutamide [Casodex] 50 mg tablet 50 mg PO QDAY Qty: 24 1RF Rx Instructions: Take one pill twice a week. amoxicillin 875 mg tablet 875 mg PO BID 5 Days Qty: 10 0RF venlafaxine 75 mg capsule,extended release 24hr 75 mg PO DAILY Follow Up/Referrals: Vonda Garcia MD [Primary Care Provider] - Stand Alone Forms: [facility] Info Instructions
== END 2023-09-10 17:05 | disposition home or self-care (01) ==
LOC: ED 16:55
PROVIDERS: Emergency Provider Emergency Medicine Emergency Medical Services; PCP Family Medicine
DX: R11.0 Nausea (principal); H66.91 Otitis media, unspecified, right ear; T36.1X5A Adverse effect of cephalosporins and other beta-lactam antibiotics, initial encounter
CPT/HCPCS: 99283; 99284